=== PATIENT | female | born 1970 | race Caucasian/White ===

== ENCOUNTER → 2024-07-10 11:44 | Outpatient (REF) | payer BC, SELFPAY | LOC: HWRAD 11:44 | PROVIDERS: ATTENDING PHYSICIAN Podiatrist Foot & Ankle Surgery | DX: M20.42 Other hammer toe(s) (acquired), left foot (principal) | CPT/HCPCS: 73630 ==

== ENCOUNTER → 2024-08-19 09:23 | Outpatient (REF) | payer BC, SELFPAY | LOC: HWWDC 09:23 | PROVIDERS: ATTENDING PHYSICIAN Obstetrics & Gynecology | DX: Z12.31 Encounter for screening mammogram for malignant neoplasm of breast (principal) | CPT/HCPCS: 77063; 77067 ==

== ENCOUNTER → 2024-09-18 08:17 | Outpatient (REF) | payer BC, SELFPAY | LOC: HWRAD 08:17 | PROVIDERS: ATTENDING PHYSICIAN Obstetrics & Gynecology | DX: Z91.89 Other specified personal risk factors, not elsewhere classified (principal) | CPT/HCPCS: 77080 ==